=== PATIENT | female | born 1945 | race Two or more races ===

== ENCOUNTER 2017-11-11 17:48 | Emergency (ER) | payer OTHER ==
[~2017-11-11] VITALS: Ht 154.9 cm; Wt 71.2 kg
[2017-11-11] MEDS ORDERED: ASA81 MG (18:02)
[2017-11-11] MEDS ORDERED: SYNTHROID50 MCG (18:02)
[2017-11-11] MEDS ORDERED: ATORVASTATIN CA10 MG (18:03)
[2017-11-11] MEDS ORDERED: NORVASC5 MG (18:03)
[2017-11-11] MEDS ORDERED: VITAMIN D2000 UNIT (18:04)
[2017-11-11] MEDS ORDERED: CALTRATE 600 +1 EACH (18:04)
== END 2017-11-11 22:50 ==
LOC: ER 17:48
DX: J40 Bronchitis, not specified as acute or chronic (principal)

== ENCOUNTER 2020-11-11 14:47 | Outpatient (CLI) | payer OTHER ==
[~2020-11-11 14:47] MED LIST: ASA81 MG; ATORVASTATIN CA10 MG; CALTRATE 600 +1 EACH; NORVASC5 MG; SYNTHROID50 MCG; VITAMIN D2000 UNIT
== END 2020-11-11 15:02 | disposition home or self-care (01) ==
LOC: RAD 14:47
PROVIDERS: ATTEND Specialist
DX: M25.561 Pain in right knee (principal); M25.562 Pain in left knee

== ENCOUNTER → 2020-11-13 | Outpatient (CLI) | payer OTHER | END | disposition home or self-care (01) | LOC: MAMO-SONO 07:05 | PROVIDERS: ATTEND Internal Medicine | DX: Z12.31 Encounter for screening mammogram for malignant neoplasm of breast (principal); Z87.898 Personal history of other specified conditions; Z12.39 Encounter for other screening for malignant neoplasm of breast ==

== ENCOUNTER 2022-03-15 14:36 | Emergency (ER) | payer OTHER ==
[~2022-03-15] VITALS: Ht 154.9 cm; Wt 64.9 kg
== END 2022-03-15 19:12 | disposition home or self-care (01) ==
LOC: ER 14:36
DX: U07.1 COVID-19 (principal); I10 Essential (primary) hypertension; Z88.1 Allergy status to other antibiotic agents

== ENCOUNTER 2024-10-01 10:25 | Outpatient (CLI) | payer OTHER | END 2024-10-01 10:58 | disposition home or self-care (01) | LOC: MRI 10:25 | PROVIDERS: ATTEND Physical Medicine & Rehabilitation | DX: M54.2 Cervicalgia (principal); M54.12 Radiculopathy, cervical region; M54.6 Pain in thoracic spine | CPT/HCPCS: 72141 ==

== ENCOUNTER 2025-03-03 12:45 | Emergency (ER) | payer OTHER ==
[~2025-03-03] VITALS: Ht 154.9 cm; Wt 66.7 kg
[2025-03-03] MEDS ORDERED: ELIQUIS5 MG (13:29)
[2025-03-03] MEDS ORDERED: ACETAMINOPHEN 500 MG GEL..CAP PO ONE (13:45)
[2025-03-03] MEDS ORDERED: GUAIFENESIN 200 MG/10 ML BLIST.PACK PO ONE (13:45)
[2025-03-03 14:36] LABS: COVID-19 AG POSITIVE (NEGATIVE)
[2025-03-03 14:46] LABS: INFLUENZA A AG NEGATIVE (NEGATIVE); INFLUENZA B AG NEGATIVE (NEGATIVE)
== END 2025-03-03 15:07 | disposition home or self-care (01) ==
LOC: ER 12:51
PROVIDERS: General Practice
DX: U07.1 COVID-19 (principal); Z88.1 Allergy status to other antibiotic agents; I10 Essential (primary) hypertension; I48.91 Unspecified atrial fibrillation; E03.8 Other specified hypothyroidism; E78.00 Pure hypercholesterolemia, unspecified